=== PATIENT | female | born 1995 | race Caucasian/White ===

== ENCOUNTER 2020-12-02 14:03 | Outpatient (CLI) | payer BC, SELFPAY ==
--- NOTE | ~2020-12-02 | US_ITS ---
EXAMINATION: US venous doppler [facility] DATE: 12/02/2020 14:56 INDICATION: Left lower limb pain TECHNIQUE: Grayscale ultrasound images without and with compression and Doppler ultrasound images of the left lower extremity veins were obtained. COMPARISON: None. FINDINGS: The visualized portions of left common femoral vein, profunda (deep) femoral vein, femoral vein, popl iteal vein, peroneal veins, posterior tibial veins, gastrocnemius vein and greater saphenous vein out flow are patent. IMPRESSION: 1. No deep venous thrombosis in the left lower limb. Reviewed, dictated and finalized at location A.
== END 2020-12-02 14:04 | disposition home or self-care (01) ==
LOC: ANHIMG 14:10
PROVIDERS: Visit Provider Obstetrics & Gynecology
DX: M79.662 Pain in left lower leg (principal)
CPT/HCPCS: 93971

== ENCOUNTER → 2021-02-24 07:03 | Outpatient (CLI) | payer BC, SELFPAY ==
[2021-02-24 18:53] LABS: SARS-CoV-2 RNA PCR Negative
== END ==
PROVIDERS: Visit Provider Obstetrics & Gynecology
DX: R52 Pain, unspecified (principal)
CPT/HCPCS: C9803; U0003; U0005

== ENCOUNTER 2021-03-15 08:00 | Outpatient (RCR) | payer BC, SELFPAY ==
[2021-03-14 10:28] LABS: Hematocrit 30.7 % (37.0-47.0); Hemoglobin 9.8 g/dL (12.0-15.0)
[2021-03-14 10:39] LABS: Glucose 1 Hour PP 50gm Dose 165 mg/dL
[2021-03-14 11:20] LABS: HIV 1/2 Ab P24 Ag Result Negative (Negative)
[2021-03-14 11:34] LABS: Rapid Plasma Reagin Non-Reactive (NonReactive)
[2021-03-15] MEDS: RHO(D) IMMUNE GLOBULIN 300 MCG/2 ML SYRINGE IM (12:35)
== END 2021-06-12 23:59 | disposition home or self-care (01) ==
LOC: ANHLAB 08:00
PROVIDERS: Visit Provider Obstetrics & Gynecology
DX: Z11.4 Encounter for screening for human immunodeficiency virus [HIV] (principal); Z29.13 Encounter for prophylactic Rho(D) immune globulin; O36.0130 Maternal care for anti-D [Rh] antibodies, third trimester, not applicable or unspecified; Z3A.00 Weeks of gestation of pregnancy not specified
CPT/HCPCS: 36415; 82947; 85014; 85018; 85461; 86592; 86703; 90384; 96372; G0432; J2790

== ENCOUNTER 2021-04-11 19:55 | Observation (INO) | payer BC, SELFPAY ==
--- NOTE | 2021-04-11 19:55 | OBADM ---
This patient, Cheryl Lopez, admitted to the OB room OB Post 116 for observation. Patient/family oriented to hospital policies and general routines including ID bracelet, bed and alarms, visiting hours, pain management, procedures, bathroom and other care routines, personal items, smoking policy, room service/diet, and visiting hours. Patient/Family are encouraged to report perceived risks to care and to ask questions if they do not understand what they are told or what they should do.
[2021-04-11 20:56] LABS: Add Urine Microscopic? YES; Appearance Urine Clear (Clear); Bacteria Urine Trace /hpf; Bilirubin Urine Negative (Negative); Blood Urine Negative (Negative); Color Urine Yellow (Yellow); Glucose Urine UA Negative (Negative); Ketones Urine Negative (Negative); Leukocyte Esterase Ur Negative LEU/UL (Negative); Mucus Urine Few /lpf; Nitrate Urine Negative (Negative); Protein Urine 2+ mg/dL (Negative); RBC Urine 0-2 /hpf (0-2); Specific Grav Ur 1.027 (1.001-1.035); Squamous Epithelial Cell Urine Rare /hpf (Few); WBC Urine 0-3 /hpf
[2021-04-11 21:10] VITALS: BP 113/70; PULSE 84
[2021-04-11 21:29] VITALS: BMI 35.3
[2021-04-11 21:34] VITALS: RESP 18
--- NOTE | 2021-05-06 19:42 | P.PNOB_ITS ---
OB - Triage/Final Diagnosis Visit Information Comments/Additional reasons for admission: I have assessed the risk for this patient, Cheryl Lopez, and determined that she would benefit from observation care. Evaluation Laboratory results: Laboratory Tests 04/11/21 20:45 Urine Color Yellow Urine Appearance Clear Urine pH 6.0 Ur Specific [place] 1.027 Urine Protein 2+ H Urine Glucose (UA) Negative Urine Ketones Negative Ur Blood (Man) Negative Urine Nitrate Negative Urine Bilirubin Negative Urine Urobilinogen 2.0 H Leukocyte Esterase Rfl Negative Urine RBC 0-2 Urine WBC 0-3 Ur Squamous Epith Cells Rare Urine Bacteria Trace Urine Mucus Few H Final Diagnosis (1) False labor: Code(s): O47.9 - False labor, unspecified Status: Acute
--- NOTE | 2021-05-06 19:44 | PM.OBTRLD ---
OB - Triage/Final Diagnosis Visit Information Comments/Additional reasons for admission: I have assessed the risk for this patient, Cheryl Lopez, and determined that she would benefit from observation care. Evaluation Laboratory results: Laboratory Tests 04/11/21 20:45 Urine Color Yellow Urine Appearance Clear Urine pH 6.0 Ur Specific [place] 1.027 Urine Protein 2+ H Urine Glucose (UA) Negative Urine Ketones Negative Ur Blood (Man) Negative Urine Nitrate Negative Urine Bilirubin Negative Urine Urobilinogen 2.0 H Leukocyte Esterase Rfl Negative Urine RBC 0-2 Urine WBC 0-3 Ur Squamous Epith Cells Rare Urine Bacteria Trace Urine Mucus Few H Final Diagnosis (1) False labor: Code(s): O47.9 - False labor, unspecified Status: Acute
== END 2021-04-11 22:07 | disposition home or self-care (01) ==
PROVIDERS: Admitting Provider Obstetrics & Gynecology; Visit Provider Obstetrics & Gynecology
DX: O47.9 False labor, unspecified (principal); Z3A.00 Weeks of gestation of pregnancy not specified
CPT/HCPCS: 81001; G0378; G0379

== ENCOUNTER 2021-05-06 12:52 | Observation (INO) | payer BC, SELFPAY ==
[2021-05-06] VITALS (11 sets, daily range): BP systolic 108–118; BP diastolic 55–66; PULSE 81–111; RESP 18; TEMP 36.6–36.8; BMI 36.6
--- NOTE | ~2021-05-06 | US_ITS ---
EXAMINATION: US OB limited w BPP DATE: 05/06/2021 15:18 INDICATION: cardiac decelerations. Assess amniotic fluid index and check placenta. TECHNIQUE: Real-time pelvic ultrasound was performed. The interpreting radiologist was not present fo r the study. COMPARISON: None. FINDINGS: There is a single living fetus in vertex presentation. The placenta is anterior. heart rate is 147 beats per minute (bpm). Normal amniotic fluid index of 19.6 cm (5th%-95%: 7.9-24.9 cm at 35 week s estimated gestational age) Biophysical profile performed by the technologist: breathing (30 sec sustained breathing in 30 minutes): 2 out of 2 movement (3 gross body movements in 30 minutes): 2 out of 2 tone (one episode of ywkdzgx-dcovffjok-yifyffx limb movement): 2 out of 2 Amniotic fluid pocket (2 cm): 2 out of 2 Total score: 8 out of 8 IMPRESSION: 1. Single living fetus in vertex presentation with heart rate of 147 bpm. 2. Biophysical profile 8 out of 8. 3. Normal amniotic fluid index of 19.6 cm. Reviewed, dictated and finalized at location A.
--- NOTE | 2021-05-06 12:52 | OBADM ---
This patient, Cheryl Lopez, admitted to the OB room OB Post 117 for observation. Patient/family oriented to hospital policies and general routines including ID bracelet, bed and alarms, visiting hours, pain management, procedures, bathroom and other care routines, personal items, smoking policy, room service/diet, and visiting hours. Patient/Family are encouraged to report perceived risks to care and to ask questions if they do not understand what they are told or what they should do.
--- NOTE | 2021-05-06 16:04 | WPDOBADMIT ---
Obstetrics - Admit Note Admission Note: 25 y/o @ 35w3d herePrenatal record reviewed. No pertinent additions to the history and/or any subsequent changes in the physical findings that are not consistent with the expected course of the were found. Additions to the history and/or subsequent changes in the physical findings follow. None.
--- NOTE | 2021-05-06 16:08 | PM.IMHP ---
H&P: HPI History of Present Illness Date/Time: 05/06/21 16:08 25 y/o @ 35w3d here after she slipped and fell on her buttocks and back while going down the stairs. Slid down 4 stairs. VSS Abdomen soft and non-tender FHR reactive record reviewed. No pertinent additions to the history and/or any subsequent changes in the physical findings that are not consistent with the expected course of the were found. Additions to the history and/or subsequent changes in the physical findings follow. None. Chief Complaint: Fall Review of Systems Review of Systems: All systems reviewed & are unremarkable except as noted in HPI and below Constitutional: Constitutional: Reports as per HPI and Reports no additional constitutional complaints Eyes: Eyes: Reports as per HPI ENT: Reports system reviewed and no additional complaints, except as documented Cardiovascular: Cardiovascular: Reports as per HPI Respiratory: Respiratory: Reports as per HPI Gastrointestinal: Gastrointestinal: Reports as per HPI Genitourinary: Genitourinary: Reports no additional female genitourinary complaints Musculoskeletal: Musculoskeletal: Reports no additional musculoskeletal complaints Integumentary/Breasts: Skin/Breast: Reports system reviewed and no additional complaints, except as docu Neurologic: Reports system reviewed and no additional complaints, except as documented Psychiatric: Psychiatric: Reports no additional psychiatric complaints Endocrine: Endocrine: Reports no additional endocrine complaints Hematologic/Lymphatic: Hematologic/Lymphatic: Reports no additional hematologic/lymphatic complaints Allergic/Immunologic: Allergic/Immunologic: Reports no additional allergic/immunologic complaints Meds Home Medications and Allergies Home Medications Medication Instructions Recorded Confirmed Type nmsatbafmt-qpofuyviqimkm-imjh 1 cap PO Q4H PRN 04/11/21 05/06/21 History insulin NPH isoph U-100 human 10 unit SUBCUT QAM 04/11/21 05/06/21 History [Humulin N NPH U-100 Insulin] iron 18 mg PO BID 04/11/21 05/06/21 History vit-ferrous sulfat-FA 1 tablet PO QAM 04/11/21 05/06/21 History [] Humulin N NPH U-100 Insulin 44 unit SUBCUT QPM 05/06/21 History albuterol mcg INHALATION PRN 05/06/21 History clobetasol 05/06/21 History nystatin-triamcinolone ea TOPICAL 05/06/21 History Allergies Allergy/AdvReac Type Severity Reaction Status Date / Time cefpodoxime Allergy Unknown Hives Verified 05/06/21 13:46 duloxetine Allergy Hives Verified 05/06/21 13:46 latex AdvReac Vomiting Verified 05/06/21 13:46 Exam Const: General: cooperative and healthy appearing Orientation/consciousness: oriented to person, oriented to place, oriented to time and patient oriented x3 Limitations: no limitations HENMT: Head: normal to inspection Ears: hearing grossly normal bilaterally General nose exam: Normal external nose present Face and sinus: normal facial exam Mouth: Yes Normal oral and palatal mucosa present Teeth and gingiva: dentition normal Throat: posterior oropharynx normal Eyes: General: appearance normal, both eyes and all related structures Neck: Neck: normal visual inspection Thyroid: thyroid normal Chest: Chest palpation & inspection: normal inspection of the chest Resp: Effort & Inspection: normal respiratory effort Auscultation: clear to auscultation bilaterally Cardio: Rate: regular rate Rhythm: regular rhythm GI: Inspection: normal to inspection : General: Yes bimanual renal exam normal bilaterally Skin: General skin exam: normal color and no rashes or lesions noted Neuro: General: oriented to person, oriented to place, oriented to time and patient oriented x3 Extrem: General: normal to inspection Psych: Mental Status: mental status grossly normal Assessment and Plan Additional Plan Rhogam given 8 weeks ago U/S appropriate FHR reactive KB negative Plan to monitor x 6 hour
== END 2021-05-06 19:15 | disposition home or self-care (01) ==
PROVIDERS: Admitting Provider Obstetrics & Gynecology; Visit Provider Obstetrics & Gynecology
DX: O26.893 Other specified pregnancy related conditions, third trimester (principal); W10.9XXA Fall (on) (from) unspecified stairs and steps, initial encounter; Z3A.35 35 weeks gestation of pregnancy
CPT/HCPCS: 36415; 76815; 76819; 85460; G0378; G0379

== ENCOUNTER 2021-05-18 12:17 | Outpatient (RCR) | payer BC, SELFPAY ==
[2021-05-09 12:57] VITALS: BP 131/67; PULSE 105
--- NOTE | ~2021-05-18 | US_ITS ---
EXAMINATION: US OB BPP wo non-stress EXAM DATE: 05/09/2021 13:17 INDICATION: Decreased movement. 3rd trimester. TECHNIQUE: Pelvic obstetrical transabdominal sonogram was performed by a technologist. There are mu ltiple grayscale and Doppler images available for interpretation. Comparison is made to prior examina tion from 05/06/2021. FINDINGS: There is a single fetus identified in vertex presentation with a heart rate of 139 beats pe r minute. The placenta is located in the anterior position. There is no sonographic evidence of retr oplacental hemorrhage identified. BIOPHYSICAL PROFILE (performed by the technologist) breathing (30 sec sustained breathing in 30 minutes): 2 out of 2 movement (3 gross body movements in 30 minutes): 2 out of 2 tone (one episode of ddppxyn-lrowtltui-inxfxab limb movement): 2 out of 2 Amniotic fluid pocket (2 cm): 2 out of 2 Total score: 8 out of 8 IMPRESSION: 1. Single fetus with heart rate of 139 bpm. 2. Normal biophysical profile score of 8 out of 8. Reviewed, dictated and finalized at location A.
--- NOTE | ~2021-05-18 | US_ITS ---
EXAMINATION: US OB BPP wo non-stress DATE: 05/18/2021 13:56 CDT INDICATION: Nonreactive tracing and office. Previous biophysical profile score of 4/8. TECHNIQUE: Real-time transabdominal obstetric ultrasound. FINDINGS: Comparison to 05/09/2021 There is a single living fetus in vertex presentation. The placenta is anterior without placenta pre via. ALEXSANDRA is normal measuring 11.6 cm. cardiac activity and movement is noted with a heart rate of 153 beats per minute. Biophysical profile: breathin of 2 movement: 2 of 2 tone: 2 of 2 Amniotic flud pocket: 2 of 2 Total score: 8 of 8 IMPRESSION: 1. Single living intrauterine in vertex presentation. 2: Total biophysical profile score of 8/8. Reviewed, dictated and finalized at location B.
[2021-05-18 14:00] VITALS: BP 118/65; PULSE 89
== END 2021-08-07 23:59 | disposition home or self-care (01) ==
LOC: ANHOBOP 12:17
PROVIDERS: Visit Provider Obstetrics & Gynecology
DX: O36.8130 Decreased fetal movements, third trimester, not applicable or unspecified (principal); Z3A.35 35 weeks gestation of pregnancy
CPT/HCPCS: 59025; 76819

== ENCOUNTER 2021-05-19 02:03 | Inpatient (IN) | payer BC, SELFPAY ==
[2021-05-19] VITALS (188 sets, daily range): BP systolic 74–134; BP diastolic 34–99; PULSE 25–140; RESP 16; TEMP 36.2–37; O2SAT 79–100; BMI 37.0
[2021-05-19 02:54] LABS: Glucose Point of Care 98 mg/dl (65-105)
[2021-05-19 03:11] LABS: Basophils Absolute Auto 0.1 K/mm3 (0.0-0.1); Basophils Percent Auto 0.4 % (0.2-1.2); Eosinophils Absolute Auto 0.1 K/mm3 (0-0.3); Eosinophils Percent Auto 0.7 % (0-4.4); Hemoglobin 9.7 g/dL (12.0-15.0); Immature Granulocyte Absolute 0.11 K/mm3 (0.00-0.031); Immature Granulocyte Percent A 0.8 % (0-0.5); Lymphocytes Absolute Auto 2.35 K/mm3 (0.9-3.2); Lymphocytes Percent Auto 17.3 % (18.3-44.2); Mean Corpuscular HGB Conc 30.3 g/dl (32-36); Mean Corpuscular Volume 82.5 fl (80-100); Mean Platelet Volume 9.2 fl (7.4-10.4); Monocytes Percent Auto 7.1 % (2.6-8.5); Neutrophils Percent Auto 73.7 % (45.5-73.1); Nucleated Red Blood Cells Perc 0.1 % (0.0-0.2); Platelet Count Result 436 k/mm3 (150-375); Red Blood Count 3.88 M/mm3 (4.2-5.4); Red Cell Distribution Width 15.1 % (11.5-14.5); White Blood Count 13.6 K/mm3 (4.5-10.0)
[2021-05-19] MEDS: LACTATED RINGERS 1,000 ML 125 ML IV CONT ×3 (03:28→11:09)
[2021-05-19] MEDS: AMPICILLIN 2 GM/NS 100 ML 2 GM/100 ML BAG IVPB (03:28)
[2021-05-19] MEDS: ACETAMINOPHEN 500 MG TABLET 1000 MG PO (04:00)
[2021-05-19] MEDS: fentaNYL CITRATE INJ (*CRX) 100 MCG/2 ML VIAL 50 MCG IV PUSH (05:13)
--- NOTE | 2021-05-19 06:24 | WPDANESEPP ---
Anes - Eval Pre Procedure Procedure: labor epidural Date/Time: 05/19/21 06:24 Surgeon: brigette Pre Op Diagnosis: Contractions Patient Data Age: 25 Gender: F Height: 1.57 m Weight: 92 kg Last Vital Signs Temp 36.2 C L 05/19/21 03:00 Pulse 77 05/19/21 06:01 BP 108/52 L 05/19/21 06:01 Allergies Allergy/AdvReac Type Severity Reaction Status Date / Time cefpodoxime Allergy Unknown Hives Verified 05/06/21 13:46 duloxetine Allergy Hives Verified 05/06/21 13:46 latex AdvReac Vomiting Verified 05/06/21 13:46 Home Medications Medication Instructions Recorded Confirmed Type Humulin N NPH U-100 Insulin 15 unit SUBCUT QAM 04/11/21 05/19/21 History iron 18 mg PO BID 04/11/21 05/19/21 History vit-ferrous sulfat-FA 1 tablet PO QAM 04/11/21 05/19/21 History Humulin N NPH U-100 Insulin 50 unit SUBCUT QPM 05/06/21 05/19/21 History albuterol 90 mcg INHALATION PRN 05/06/21 05/19/21 History Laboratory Tests 05/19/21 05/19/21 05/19/21 02:46 02:57 02:57 WBC 13.6 K/mm3 H K/mm3 (4.5-10.0) RBC 3.88 M/mm3 L M/mm3 (4.2-5.4) Hgb 9.7 g/dL L g/dL (12.0-15.0) Hct 32.0 % L % (37.0-47.0) MCV 82.5 fl fl (80-100) MCH 25.0 pg L pg (26-34) MCHC 30.3 g/dl L g/dl (32-36) RDW 15.1 % H % (11.5-14.5) Plt Count 436 k/mm3 H k/mm3 (150-375) MPV 9.2 fl fl (7.4-10.4) Immature Gran % (Auto) 0.8 % H % (0-0.5) Neut % (Auto) 73.7 % H % (45.5-73.1) Lymph % (Auto) 17.3 % L % (18.3-44.2) [place] % (Auto) 7.1 % % (2.6-8.5) Eos % (Auto) 0.7 % % (0-4.4) Baso % (Auto) 0.4 % % (0.2-1.2) Lymph # (Auto) 2.35 K/mm3 K/mm3 (0.9-3.2) [place] # (Auto) 1.0 K/mm3 H K/mm3 (0.1-0.6) Eos # (Auto) 0.1 K/mm3 K/mm3 (0-0.3) Baso # (Auto) 0.1 K/mm3 K/mm3 (0.0-0.1) Abs Immat Gran (auto) 0.11 K/mm3 H K/mm3 (0.00-0.031) Absolute Neuts (auto) 10.0 K/mm3 H K/mm3 (1.3-6.7) Absolute Nucleated RBC 0.0 K/mm3 K/mm3 (0.0-0.012) Nucleated RBC % 0.1 % % (0.0-0.2) POC Capillary Glucose 98 mg/dl mg/dl (65-105) RPR Pending Blood Type Antibody Screen 05/19/21 02:57 WBC RBC Hgb Hct MCV MCH MCHC RDW Plt Count MPV Immature Gran % (Auto) Neut % (Auto) Lymph % (Auto) [place] % (Auto) Eos % (Auto) Baso % (Auto) Lymph # (Auto) [place] # (Auto) Eos # (Auto) Baso # (Auto) Abs Immat Gran (auto) Absolute Neuts (auto) Absolute Nucleated RBC Nucleated RBC % POC Capillary Glucose RPR Blood Type A Negative Antibody Screen Negative Patient hx anesthesia problems: none Family hx anesthesia problems: none Results Review: All pre-operative results and documents have been reviewed as part of the pre-operative evaluation. [facility] Social History Social History Smoking status: Never smoker Second hand tobacco smoke exposure: No Substance use: never Spiritual care concerns: No Exam Day of Procedure 05/19/21 06:24
[2021-05-19] MEDS: AMPICILLIN 1 GM/NS 50 ML 1 GM/50 ML BAG IVPB ×2 (07:25→11:09)
--- NOTE | 2021-05-19 07:37 | PM.IMHP ---
H&P: HPI History of Present Illness Date/Time: 05/19/21 07:37 Chief Complaint: labor Narrative: Cheryl is a at 37.2 who presented in spontaneous labor. h/o 34 week delivery severe PreE. GBS pos. GDMA2. Review of Systems Review of Systems: All systems reviewed & are unremarkable except as noted in HPI and below PMFSH Social History Social History Smoking status: Never smoker Second hand tobacco smoke exposure: No Substance use: never Spiritual care concerns: No Meds Home Medications and Allergies Home Medications Medication Instructions Recorded Confirmed Type Humulin N NPH U-100 Insulin 15 unit SUBCUT QAM 04/11/21 05/19/21 History iron 18 mg PO BID 04/11/21 05/19/21 History vit-ferrous sulfat-FA 1 tablet PO QAM 04/11/21 05/19/21 History Humulin N NPH U-100 Insulin 50 unit SUBCUT QPM 05/06/21 05/19/21 History albuterol 90 mcg INHALATION PRN 05/06/21 05/19/21 History Allergies Allergy/AdvReac Type Severity Reaction Status Date / Time cefpodoxime Allergy Unknown Hives Verified 05/06/21 13:46 duloxetine Allergy Hives Verified 05/06/21 13:46 latex AdvReac Vomiting Verified 05/06/21 13:46 Vital Signs Vital Signs - 24 hr 05/19/21 02:19 05/19/21 02:31 05/19/21 02:46 Temperature Pulse Rate 114 H 109 H 100 Blood Pressure 134/85 130/70 121/67 Pulse Oximetry 05/19/21 03:00 05/19/21 03:01 05/19/21 03:31 Temperature 97.2 F L Pulse Rate 95 97 Blood Pressure 122/74 115/51 L Pulse Oximetry 05/19/21 03:46 05/19/21 05:09 05/19/21 05:31 Temperature Pulse Rate 88 85 80 Blood Pressure 120/61 121/46 L 125/57 L Pulse Oximetry 05/19/21 06:01 05/19/21 06:28 05/19/21 06:31 Temperature Pulse Rate 77 101 H Blood Pressure 108/52 L 112/69 Pulse Oximetry 98 05/19/21 06:32 05/19/21 06:33 05/19/21 06:37 Temperature Pulse Rate 94 Blood Pressure 111/67 Pulse Oximetry 100 99 05/19/21 06:38 05/19/21 06:41 05/19/21 06:42 Temperature Pulse Rate 99 88 90 Blood Pressure 99/46 L 116/60 125/76 Pulse Oximetry 100 05/19/21 06:43 05/19/21 06:44 05/19/21 06:46 Temperature Pulse Rate 92 97 Blood Pressure 123/69 108/59 L Pulse Oximetry 99 05/19/21 06:48 05/19/21 06:49 05/19/21 06:52 Temperature Pulse Rate 84 86 Blood Pressure 118/69 118/59 L Pulse Oximetry 98 97 05/19/21 06:54 05/19/21 06:55 05/19/21 06:58 Temperature Pulse Rate 81 94 Blood Pressure 121/62 121/62 Pulse Oximetry 98 05/19/21 06:59 05/19/21 07:01 05/19/21 07:04 Temperature Pulse Rate 93 82 Blood Pressure 118/60 118/62 Pulse Oximetry 98 97 05/19/21 07:07 05/19/21 07:09 05/19/21 07:13 Temperature Pulse Rate 92 81 87 Blood Pressure 106/58 L 115/55 L 116/58 L Pulse Oximetry 97 05/19/21 07:14 05/19/21 07:15 05/19/21 07:19 Temperature Pulse Rate 107 H Blood Pressure 108/60 Pulse Oximetry 98 100 05/19/21 07:24 05/19/21 07:29 05/19/21 07:31 Temperature Pulse Rate 80 Blood Pressure 124/58 L Pulse Oximetry 100 99 05/19/21 07:34 Temperature Pulse Rate Blood Pressure Pulse Oximetry 100 Exam Const: General: no acute distress Resp: Effort & Inspection: normal respiratory effort Auscultation: clear to auscultation bilaterally Cardio: Rate: regular rate Rhythm: regular rhythm GI: GI Palp: Yes Soft to palpation Extrem: General: normal to inspection H&P: Results Labs Labs: Short CBC 05/19/21 Range/Units 02:57 WBC 13.6 H (4.5-10.0) K/mm3 Hgb 9.7 L (12.0-15.0) g/dL Hct 32.0 L (37.0-47.0) % Plt Count 436 H (150-375) k/mm3 Assessment and Plan Additional Plan Here for labor at term GBS pos AROM clear /-3 FHT category 1
[2021-05-19 08:24] LABS: Glucose Point of Care 71 mg/dl (65-105)
[2021-05-19] MEDS: OXYTOCIN 30 UNITS/NS 500 ML 30 UNITS/500 ML BAG IV CONT (09:57)
[2021-05-19] MEDS: ONDANSETRON INJ 4 MG/2 ML VIAL IV PUSH (10:50)
[2021-05-19 11:21] LABS: Glucose Point of Care 74 mg/dl (65-105)
--- NOTE | 2021-05-19 14:22 | PM.OBPRVD ---
OB - Delivery Note Procedure Delivery date: 05/19/21 Procedure: events: Gestational Diabetes Intrapartal events: None Induction method: none Delivery augmentation: rupture of membranes and pitocin Delivery monitor: external FHT and internal uterine Route of delivery: Episiotomy description: None Laceration Description: Periurethral (right, hemostatic) Specimen: No Quantitative Blood Loss (ml): 75 Anesthesia type: Epidural Disposition: floor Narrative: With adequate expulsive efforts by the mother, the baby's head was delivered OA with both hands up by the head as well. The baby's anterior shoulder was delivered under the pubic symphysis without difficulty. The posterior shoulder and the rest of the baby delivered without difficulty. The was placed on the mothers chest and suctioned and stimulated. The cord was clamped and cut after 30 seconds. Mother and baby both stable. [place] Baby Date of : 05/19/21 Time of : 14:10 Weeks of gestation at delivery: 37 Infant gender: Male Weight (pounds): 7 Weight (ounces): 8 presentation: vertex Placenta delivery description: Spontaneous cord vessel description: 3 Vessels and Delayed Cord Clamping score one minute: 9 score five minutes: 9
[2021-05-19 14:53] LABS: Glucose Point of Care 70 mg/dl (65-105)
[2021-05-19] MEDS: OXYTOCIN 30 UNITS/NS 500 ML 30 UNITS/500 ML BAG 125 UNITS IV CONT (14:53)
[2021-05-19] MEDS: IBUPROFEN 600 MG TABLET PO (15:02)
[2021-05-19] MEDS: LORATADINE 10 MG TABLET PO (16:47)
[2021-05-19] MEDS: WITCH HAZEL 40 PADS 1 PAD TOPICAL (16:48)
[2021-05-19] MEDS: BENZOCAINE 20% AER SPR (*SP) 56 GM CAN 1 SPRAY TOPICAL (16:48)
[2021-05-19] MEDS: DOCUSATE SODIUM 100 MG CAPSULE PO (19:12)
[2021-05-19] MEDS: ACETAMINOPHEN 325 MG TABLET 650 MG PO (19:12)
[2021-05-19] MEDS: POLYSACCHARIDE IRON COMPLEX 150 MG CAPSULE PO (19:12)
--- NOTE | 2021-05-19 19:17 | OBPPTRN ---
1714-Patient transferred to post room #278 via wheelchair. Support person present. Oriented to unit, room, information board, rooming in, admission packet and security measures. Patient verbalizes understanding.
[2021-05-20] MEDS: IBUPROFEN 600 MG TABLET PO ×3 (02:11→14:18)
[2021-05-20 04:00] VITALS: BP 101/51; PULSE 82; RESP 16; TEMP 36.9
[2021-05-20 05:40] LABS: Hematocrit 24.5 % (37.0-47.0); Hemoglobin 7.5 g/dL (12.0-15.0)
[2021-05-20] MEDS: WITCH HAZEL 40 PADS 1 PAD TOPICAL (06:55)
[2021-05-20] MEDS: BENZOCAINE 20% AER SPR (*SP) 56 GM CAN 1 SPRAY TOPICAL (06:55)
[2021-05-20] MEDS: ACETAMINOPHEN 325 MG TABLET 650 MG PO (06:56)
[2021-05-20] MEDS: POLYSACCHARIDE IRON COMPLEX 150 MG CAPSULE PO (06:57)
[2021-05-20] MEDS: MULTIVIT/MIN/PREN/FOL AC/IRON TABLET 1 TAB PO (06:57)
[2021-05-20] MEDS: DOCUSATE SODIUM 100 MG CAPSULE PO (06:57)
[2021-05-20 08:00] VITALS: BP 109/55; PULSE 93; RESP 18; TEMP 36.6; O2SAT 100
--- NOTE | 2021-05-20 09:28 | PM.OBPNVD ---
OB - PN: Subj Subjective Date/time seen: 05/20/21 09:28 Patient comments: no complaints, pain well controlled, incisional pain, tolerating diet and flatus present OB - PN: Obj Data Labs CBC & Chem 7: 05/20/21 04:02 Labs: Laboratory Results - last 24 hr 05/19/21 05/19/21 05/20/21 11:08 12:57 04:02 Hgb 7.5 L Hct 24.5 L POC Capillary Glucose 74 70 OB - PN A/P Plan day: 1 Plan: routine care Comments: No problems, routine care Time Spent With Patient Time: Total time spent is greater than 50% in coordination of care (as documented) at patient's floor/unit and/or counseling patient: Exam Const: General: comfortable, no acute distress and alert Resp: Effort & Inspection: normal respiratory effort Auscultation: no crackles, no rales and no rhonchi Cardio: Rate: regular rate Heart sounds: no click, no murmurs and no rubs GI: Inspection: non-distended GI Palp: No Tenderness to palpation present (GI) Auscultation: normal bowel sounds Other: Incision - CDI Extrem: General: normal to inspection, no pedal edema and no calf tenderness
--- NOTE | 2021-05-20 09:29 | PM.OBDSVD ---
DS: Admitting Diagnosis Discharge Date 05-20-2021 Admitting Diagnosis term DS: Discharge Diagnosis Discharge Diagnosis (1) Term delivered: Code(s): O80 - Encounter for full-term uncomplicated delivery Status: Acute OB - DS: Summary OB Procedures : None OB Procedures Intrapartum: Spontaneous Vag Delivery OB Procedures: : None Time Spent with Patient Time attestation: Total time spent providing and/or coordinating discharge services: DS: Data Data Completed and Pending Labs on day of discharge: Labs from last 24 hours 05/20/21 05/19/21 05/19/21 04:02 12:57 11:08 Hgb 7.5 L Hct 24.5 L POC Capillary Glucose 70 74 Discharge Plan Discharge Discharging Clinician: cristiana Patient Disposition: Home, Self-Care Activity: pelvic rest Diet: regular Patient Instructions: Antibiotic Form Stand Alone Forms: General Discharge Information Follow-up/Referrals: Bon Lacey MD [Physician] - Discharge Medications: Continued vit-ferrous sulfat-FA 27 mg iron- 0.8 mg Tablet 1 tablet PO QAM RF: 0 iron 18 mg Tablet 18 mg PO BID RF: 0 albuterol 90 mcg/actuation Aerosol 90 mcg INHALATION PRN RF: 0 Discontinued Humulin N NPH U-100 Insulin 100 unit/mL suspension 15 unit SUBCUT QAM RF: 0 Humulin N NPH U-100 Insulin 100 unit/mL Suspension 50 unit SUBCUT QPM RF: 0 Date of admission: 05/19/21 02:35 Primary Care Provider: PHYSICIAN,TELEPHONE ANSWERING SERVICE OPERATOR Admitting Provider: Nathalie Joe Attending physician on admission: Nathalie Joe Condition: Stable
--- NOTE | 2021-05-20 09:41 | PC.NURSE ---
Education: Mom and Baby Guide Given to: Mother Follow-Up: Call your delivering provider's office for an appointment to be seen in: 6 Weeks Mom and baby should come to the [facility] for the follow-up appointment. Appointment Date/Time: Saturday, May 22, 2021 at 8:00 am What to expect at your follow-up visit: Blood Pressure Check Physical Assessment Call [phone] if you are unable to keep your appointment time. BREAST CARE: * Wear a snug supportive bra. * For engorgement discomfort: Breast Feeding: * Apply warm moist washcloths * Express milk as needed to relieve engorgement * Wear loose clothing Bottle Feeding: * May apply ice packs * For sore nipples: * Identify correct latch-on * Apply warm moist washcloths before and after nursing * Air dry nipples after nursing * May apply Lansinoh cream to nipples EPISIOTOMY/PERINEAL CARE * Until bleeding stops, use your cherelle bottle after urinating * Change your pad frequently throughout the day * You may take sitz baths several times a day (fill your bathtub with warm water and soak for 20 minutes.) Do NOT bathe in the water * No tub baths until seen by your physician - You may shower ACTIVITY: * Rest as much as possible. * Do not exercise or lift anything heavier than your baby (such as laundry or other children.) * Avoid stairs or driving as much as possible. * Do not put anything into the vagina. No douching, tampons, or sexual activity until seen by physician. NOTIFY PHYSICIAN IF YOU HAVE ANY QUESTIONS OR IF ANY OF THE FOLLOWING SYMPTOMS OCCUR: * If your episiotomy becomes red, swollen, or more painful than what you have experienced in the hospital. * If your vaginal bleeding becomes foul smelling. * If your vaginal bleeding becomes more heavy than a period or if your bleeding changes from pink to bright red. However, you may pass an occasional walnut-sized clot once or twice for the first week . * If you experience a sharp, shooting pain in you calves. * If you discover a hard, reddened area on your breast or if you experience flu-like symptoms. DIET: * Eat regular, well-balanced meals. * Drink plenty of fluids daily. If , drink to thirst.
--- NOTE | 2021-05-20 09:43 | PC.NURSE ---
Self care and infant care discharge instructions given including follow up visit date and time. No questions or concerns voiced. Very pleasant and cooperative.l
[2021-05-20 12:30] VITALS: BP 110/60; PULSE 90; RESP 18; TEMP 36.8
--- NOTE | 2021-05-20 15:08 | WPDANLDPN2 ---
Anes-Prog Note L&D Date/Time: 05/20/21 15:08 Comfortable throughout: labor and delivery Neuraxial method: epidural Epidural/Spinal procedure site: clean & non-tender Neuro status: Neuro function grossly intact. Cardiovascular status: normal Respiratory status: normal Airway patency: baseline Mental status: baseline Post-Op hydration status: normal Vital Signs: Last Vital Signs Temp 36.8 C 05/20/21 12:30 Pulse 90 05/20/21 12:30 Resp 18 05/20/21 12:30 BP 110/60 05/20/21 12:30 Pulse Ox 100 05/20/21 08:00 Pain score (VAS): 0 I/O: Intake & Output 05/19/21 05/20/21 05/20/21 23:59 07:59 15:59 Intake Total 500 Output Total 68 Balance 432 Post-procedural complaints: none Patient feedback: Patient satisfied with anesthetic care.
[2021-05-22 06:22] LABS: Rapid Plasma Reagin Non-Reactive (NonReactive)
[2021-05-22 08:42] VITALS: BP 124/60; PULSE 79; RESP 20; TEMP 37.3; O2SAT 100
== END 2021-05-20 16:55 | disposition home or self-care (01) | DRG 807 ==
LOC: ANHLDR 02:07 → ANHOB2 05-20 09:31 → ANHLDR 05-23 06:59 → ANHOB2 05-23 06:59
PROVIDERS: Obstetrics & Gynecology; Admitting Provider Obstetrics & Gynecology; Visit Provider Obstetrics & Gynecology
DX: O24.429 Gestational diabetes mellitus in childbirth, unspecified control (principal); Z37.0 Single live birth; O71.82 Other specified trauma to perineum and vulva; O99.824 Streptococcus B carrier state complicating childbirth; O76 Abnormality in fetal heart rate and rhythm complicating labor and delivery; O32.6XX0 Maternal care for compound presentation, not applicable or unspecified; Z3A.37 37 weeks gestation of pregnancy
CPT/HCPCS: 36415; 59025; 76819; 82948; 85014; 85018; 85025; 86592; 86850; 86900; 86901; A9270; J0290; J2405; J2590; J2795; J3010; J7120